=== PATIENT | female | born 1975 | race Caucasian/White ===

== ENCOUNTER 2021-03-25 16:16 | Emergency (ER) | payer OTHER ==
[~2021-03-25] VITALS: Ht 154.9 cm; Wt 68.0 kg
[~2021-03-25 16:16] MED LIST: GLU500 PO; INSU100V SQ; INSU100V11 SQ
[2021-03-25 16:20] VITALS: BP_SYST 104
--- NOTE | 2021-03-25 17:32 | NUR ---
Patient to ER bed tent 1 to gown for evaluation. Side rails up.
--- NOTE | 2021-03-25 17:50 | NUR ---
PT PRESENTS TO ED C/O COVID SYMPTOMS.
--- NOTE | 2021-03-25 18:00 | NUR ---
ER at bedside examining patient.
[2021-03-25] MEDS ORDERED: IBUPROFEN 600 MG TABLET PO ONE (18:15)
--- NOTE | 2021-03-25 18:15 | NUR ---
PT MEDICATED TOLERATED WELL.
[2021-03-25 19:16] VITALS: BP_SYST 104
--- NOTE | 2021-03-25 19:16 | NUR ---
Patient given written and verbal discharge instructions and verbalizes understanding. ER MD discussed with patient the results and treatment provided. Patient in stable condition. ID arm band removed. NO Rx given. Patient educated on pain management and to follow up with PMD. Pain Scale 0. Opportunity for questions provided and answered. Medication side effect fact sheet provided.
== END 2021-03-25 19:16 | disposition home or self-care (01) ==
LOC: SED 16:16
DX: U07.1 COVID-19 (principal); E11.9 Type 2 diabetes mellitus without complications; J45.909 Unspecified asthma, uncomplicated; Z79.899 Other long term (current) drug therapy; Z88.8 Allergy status to other drugs, medicaments and biological substances; Z88.5 Allergy status to narcotic agent
CPT/HCPCS: 36415; 99283

== ENCOUNTER 2021-04-01 11:52 | Emergency (ER) | payer OTHER ==
[~2021-04-01] VITALS: Ht 160 cm; Wt 68.0 kg
[2021-04-01 12:00] VITALS: BP_SYST 105
[2021-04-01 12:25] VITALS: BP_SYST 105
--- NOTE | 2021-04-01 12:25 | NUR ---
ER DR. SPARKS EXAMINING PT IN TENT
[2021-04-01] MEDS ORDERED: CASIRIVIMAB 600 MG, IMDEVIMAB 600 MG in NS 250 ML IV ONE (14:30)
[2021-04-01] MEDS ORDERED: predniSONE 20 MG TABLET PO ONE (14:45)
--- NOTE | 2021-04-01 14:45 | NUR ---
Patient to ER bed 08 to gown for evaluation. Side rails up.
[2021-04-01] MEDS ORDERED: PRED20TA PO (14:46)
--- NOTE | 2021-04-01 15:00 | NUR ---
PT CAME IN FROM HOME C/O RECENT +TEST OF COVID 8.23.21 AND WORSENING SYMPTOMS, PT O2 SAT RA 92-94%. PT HAS HAD WORSENING COUGH, V/S STABLE, AAOX4, AMBUALTORY
--- NOTE | 2021-04-01 15:50 | NUR ---
CONSENT SIGNED FOR [facility]
--- NOTE | 2021-04-01 16:30 | NUR ---
PT RESTING IN BED, NO DISTRESS, V/S STABLE
[2021-04-01 17:13] VITALS: BP_SYST 105
--- NOTE | 2021-04-01 17:16 | NUR ---
Patient given written and verbal discharge instructions and verbalizes understanding. ER MD discussed with patient the results and treatment provided. Patient in stable condition. ID arm band removed. IV catheter removed intact and dressing applied, no active bleeding. Rx of PREDNISONE given. Patient educated on pain management and to follow up with PMD. Pain Scale 0/10. Opportunity for questions provided and answered. Medication side effect fact sheet provided.
== END 2021-04-01 17:13 | disposition home or self-care (01) ==
LOC: SED 14:01
DX: U07.1 COVID-19 (principal); R05 Cough; R06.02 Shortness of breath; E11.9 Type 2 diabetes mellitus without complications; Z79.4 Long term (current) use of insulin
CPT/HCPCS: 71045; 93005; 99284; J7050; J7512; M0243; Q0243

== ENCOUNTER 2021-04-03 13:52 | Emergency (ER) | payer OTHER, SELFPAY ==
[~2021-04-03] VITALS: Ht 157.5 cm; Wt 65.8 kg
[2021-04-03 13:52] VITALS: BP_SYST 100
[~2021-04-03 13:52] MED LIST changes: +PRED20TA PO
--- NOTE | 2021-04-03 13:52 | NUR ---
Patient triaged and placed in waiting room. VSS and patient appears in no acute distress at this time. Accompanied by SELF, awaiting available bed, and MD notified of need for MSE.
--- NOTE | 2021-04-03 14:35 | NUR ---
NO CHANGES, TALKING WITH SPOUSE AND OTHER PTS.
--- NOTE | 2021-04-03 15:10 | NUR ---
DR SPARKS OUT TO TRIAGE TENT FOR EVALUATION
[2021-04-03] MEDS ORDERED: ALPR0.5T PO (15:47)
[2021-04-03] MEDS ORDERED: IBUP-1969 PO (15:47)
[2021-04-03 15:51] VITALS: BP_SYST 111
--- NOTE | 2021-04-03 15:52 | NUR ---
FPatient given written and verbal discharge instructions and verbalizes understanding. ER MD discussed with patient the results and treatment provided. Patient in stable condition. ID arm band removed. Rx of XANAX, IBUPRFEN given. Patient educated on pain management and to follow up with PMD. Pain Scale 0/10. Opportunity for questions provided and answered. Medication side effect fact sheet provided.
== END 2021-04-03 15:52 | disposition home or self-care (01) ==
LOC: SED 13:52
DX: R06.02 Shortness of breath (principal); J45.909 Unspecified asthma, uncomplicated; E11.9 Type 2 diabetes mellitus without complications; Z79.899 Other long term (current) drug therapy; Z88.5 Allergy status to narcotic agent; Z88.8 Allergy status to other drugs, medicaments and biological substances; Z20.822 Contact with and (suspected) exposure to COVID-19
CPT/HCPCS: 36415; 99283